=== PATIENT | male | born 1970 | race Caucasian/White ===

== ENCOUNTER → 2018-09-20 | Outpatient (CLI) | payer MEDICAID, OTHER ==
--- NOTE | 2018-09-20 13:32 | XR ---
EXAMINATION TYPE: XR humerus RT DATE OF EXAM: 09/20/2018 COMPARISON: NONE HISTORY: Pain TECHNIQUE: 2 views submitted. FINDINGS: The osseous structures are intact and the joint spaces are preserved. IMPRESSION: 1. No acute fracture or dislocation.
--- NOTE | 2018-09-20 13:33 | XR ---
EXAMINATION TYPE: XR forearm RT DATE OF EXAM: 09/20/2018 COMPARISON: NONE HISTORY: Pain Two views of the forearm demonstrate that the osseous structures appear to be intact and the joint sp aces appear to be preserved. There is no acute fracture or dislocation. There is an elliptical luce nt lesion within the mid diaphysis cortex of the radius. IMPRESSION: 1. No acute fracture or dislocation. 2. Question a small intraosseous lesion diaphysis mid radius. Likely benign. Bone scan could BE obtai yoselyn for further evaluation.
== END | disposition home or self-care (01) ==
LOC: RADXRMAIN 09:29
PROVIDERS: ATTEND Emergency Medicine
DX: M79.601 Pain in right arm (principal)

== ENCOUNTER 2020-03-12 13:33 | Emergency (ER) | payer OTHER ==
--- NOTE | 2020-03-12 14:40 | ED ---
General Adult HPI - General Stated complaint: [facility]-calf injury Source: patient, RN notes reviewed, old records reviewed - History of Present Illness Initial comments: 49-year-old male presenting for evaluation of right leg pain. Patient was walking down steps, missed the to low steps and felt a pop in his posterior right calf. He's had severe pain since the injury occurred. He denies any knee pain or ankle pain. no head neck or back trauma. Review of Systems ROS Statement: Those systems with pertinent positive or pertinent negative responses have been documented in the HPI. ROS Other: All systems not noted in ROS Statement are negative. General Exam General appearance: alert, in no apparent distress Eye exam: Present: normal appearance Neck exam: Present: full ROM Respiratory exam: Absent: respiratory distress Cardiovascular Exam: Present: regular rate, normal rhythm Extremities exam: Present: calf tenderness (ppatient's range of motion at the ankle is within normal limits. He has tenderness to palpation throughout the upper calf corresponding with the gastroc and soleus muscles. Distal pulses are intact, compartments are soft.), other Medical Decision Making - Medical Decision Making 49-year-old male with right calf injury, suspect muscle strain, or partial tear. Patient will require orthopedic evaluation, and MRI Disposition Clinical Impression: Strain of calf muscle Disposition: HOME SELF-CARE Condition: Good Instructions (If sedation given, give patient instructions): Leg Sprain (ED) Is patient prescribed a controlled substance at d/c from ED?: No Referrals: Nicanor Rincon MD [Primary Care Provider] - 1-2 days Dann No MD [STAFF PHYSICIAN] - 1-2 days Time of Disposition: 14:34
== END 2020-03-12 14:48 | disposition home or self-care (01) ==
LOC: EC 13:33
DX: S86.911A Strain of unspecified muscle(s) and tendon(s) at lower leg level, right leg, initial encounter (principal); W10.9XXA Fall (on) (from) unspecified stairs and steps, initial encounter
CPT/HCPCS: 99283